=== PATIENT | male | born 1960 | race Caucasian/White ===

== ENCOUNTER 2024-05-29 06:24 | Outpatient (CLI) | payer MEDICARE, OTHER, SELFPAY ==
--- NOTE | 2024-05-29 07:45 | P.ANES_ITS ---
Anesthesia Charges Start Date/Time Anesthesia Start Date: 05/29/24 Anesthesia Start Time: 07:10 Stop Date/Time Anesthesia Stop Date: 05/29/24 Anesthesia Stop Time: 07:42 Coding CPT Codes CPT Codes: ANES LWR INTST NDSC NOS - [id number] ([id number]) P3 - PATIENT W/SEVERE SYS DISEASE, QK - CUSTOMER SPECIALIST 2-4 CNCRNT ANES PROC, QX - PRINT SHOP CHIEF CLERK SVC W/ MD MED DIRECTION
--- NOTE | 2024-05-29 07:45 | W.ANESCHARGE ---
Anesthesia Charges Start Date/Time Anesthesia Start Date: 05/29/24 Anesthesia Start Time: 07:10 Stop Date/Time Anesthesia Stop Date: 05/29/24 Anesthesia Stop Time: 07:42 Coding CPT Codes CPT Codes: ANES LWR INTST NDSC NOS - [id number] ([id number]) P3 - PATIENT W/SEVERE SYS DISEASE, QK - AUDIO VISUAL FACILITIES ENGINEER 2-4 CNCRNT ANES PROC, QX - READING COACH SVC W/ MD MED DIRECTION
--- NOTE | 2024-05-29 08:39 | P.ANES_ITS ---
Anesthesia Charges Start Date/Time Anesthesia Start Date: 05/29/24 Anesthesia Start Time: 07:10 Stop Date/Time Anesthesia Stop Date: 05/29/24 Anesthesia Stop Time: 07:42 Coding CPT Codes CPT Codes: ANES LWR INTST NDSC NOS - [id number] ([id number]) QK - SUBSTATION WIREMAN 2-4 CNCRNT ANES PROC, QX - MOPHEAD TRIMMER AND WRAPPER SVC W/ MED DIRECTION, P3 - PATIENT W/SEVERE SYS DISEASE
--- NOTE | 2024-05-29 08:39 | W.ANESCHARGE ---
Anesthesia Charges Start Date/Time Anesthesia Start Date: 05/29/24 Anesthesia Start Time: 07:10 Stop Date/Time Anesthesia Stop Date: 05/29/24 Anesthesia Stop Time: 07:42 Coding CPT Codes CPT Codes: ANES LWR INTST NDSC NOS - [id number] ([id number]) QK - MANAGER BUSINESS INFORMATION 2-4 CNCRNT ANES PROC, QX - COOK MAYONNAISE SVC W/ MED DIRECTION, P3 - PATIENT W/SEVERE SYS DISEASE
== END 2024-05-29 06:25 | disposition home or self-care (01) ==
LOC: OP CLINIC 06:29
PROVIDERS: PCP Surgery; Visit Provider Internal Medicine Gastroenterology
DX: Z12.11 Encounter for screening for malignant neoplasm of colon (principal); D12.2 Benign neoplasm of ascending colon; Z86.0101 Personal history of adenomatous and serrated colon polyps
CPT/HCPCS: 00811; 45380; 88305; J2704